=== PATIENT | male | born 1990 | race Caucasian/White ===

== ENCOUNTER 2017-12-15 14:49 | Emergency (ER) | payer OTHER | END 2017-12-15 15:22 | disposition home or self-care (01) | LOC: E/R 14:49 | DX: H66.93 Otitis media, unspecified, bilateral (principal); J06.9 Acute upper respiratory infection, unspecified; F17.210 Nicotine dependence, cigarettes, uncomplicated | CPT/HCPCS: 99283; Z7502 ==